=== PATIENT | female | born 1975 | race Caucasian/White ===

== ENCOUNTER 2024-01-21 11:52 | Observation (INO) | payer BC, OTHER ==
[~2024-01-21] VITALS: Ht 160 cm; Wt 81.6 kg
[2024-01-21] MEDS ORDERED: SODIUM CHLORIDE FLUSH 10 ML SYR IV PRN (12:30)
[2024-01-21 12:34] LABS: BASOPHILS # (AUTO) 0.1 (0.0-0.1); BASOPHILS % 0.6 % (0.0-1.0); EOSINOPHILS # (AUTO) 0.1 (0.0-0.4); HEMATOCRIT 36.5 % (34.2-44.1); HEMOGLOBIN 12.8 g/dL (12.0-16.0); LYMPHOCYTES # (AUTO) 3.2 (1.0-3.2); LYMPHOCYTES % 36.6 % (18.0-39.1); MEAN CORPUSCULAR HEMOGLOBIN 33.2 pg (28-32); MEAN CORPUSCULAR HGB CONC 35.1 g/dL (31-35); MEAN CORPUSCULAR VOLUME 94.8 fL (81-99); MONOCYTES # (AUTO) 0.5 (0.2-0.8); NEUTROPHILS # (AUTO) 4.8 (2.1-6.9); NEUTROPHILS % 55.5 % (38.7-80.0); PLATELET COUNT 278 x10e3/uL (140-360); RED BLOOD COUNT 3.85 x10e6/uL (3.6-5.1); RED CELL DISTRIBUTION WIDTH 12.3 % (11.7-14.4); WHITE BLOOD COUNT 8.66 x10e3/uL (4.8-10.8)
[2024-01-21 12:54] LABS: ALANINE AMINOTRANSFERASE 45 IU/L (0-55); ALBUMIN 4.5 g/dL (3.5-5.0); ALBUMIN/GLOBULIN RATIO 1.4 (0.8-2.0); ALKALINE PHOSPHATASE 68 IU/L (40-150); ANION GAP 17.1 mmol/L (8-16); BILIRUBIN,TOTAL 0.4 mg/dL (0.2-1.2); BLOOD UREA NITROGEN 8 mg/dL (7-26); BUN/CREATININE RATIO 9 (6-25); CALCIUM 10.2 mg/dL (8.4-10.2); CARBON DIOXIDE 21 mmol/L (22-29); CHLORIDE 103 mmol/L (98-107); EST GLOMERULAR FILTRATION RATE 78 ML/MIN (>=60); GLUCOSE 95 mg/dL (74-118); POTASSIUM 4.1 mmol/L (3.5-5.1); SODIUM 137 mmol/L (136-145); TOTAL PROTEIN 7.8 g/dL (6.5-8.1)
[2024-01-21] MEDS: ASPIRIN 81 MG CHEW TAB PO ONE ×2 (13:03→14:36)
[2024-01-21 13:04] LABS: TROPONIN I < 0.001 ng/mL (0-0.300)
[2024-01-21] MEDS ORDERED: ONDANSETRON HCL INJ 2MG/ML 2ML 2 MG/ML VIAL IV PRN (14:15)
[2024-01-21] MEDS ORDERED: SODIUM CHLORIDE FLUSH 10 ML SYR INJ PRN (14:15)
[2024-01-21 17:03] VITALS: BP 147/96; PULSE 82; RESP 19; TEMP 98.3; O2SAT 100
[2024-01-21] MEDS ORDERED: METFORMIN HCL500 MG PO (17:32)
[2024-01-21] MEDS ORDERED: OMEGA 3 1,0001 EACH PO (17:32)
[2024-01-21] MEDS ORDERED: SYNTHROID75 MCG PO (17:32)
[2024-01-21] MEDS ORDERED: FAMOTIDINE20 MG PO (17:32)
[2024-01-21] MEDS ORDERED: ATORVASTATIN CA20 MG PO (17:32)
[2024-01-21 17:37] VITALS: BP 147/96; PULSE 82; RESP 19; TEMP 98.3; O2SAT 100
[2024-01-21] MEDS ORDERED: METOPROLOL TARTRATE INJ 1 MG/ML VIAL IV PRN (18:30)
[2024-01-21] MEDS ORDERED: DOCUSATE SODIUM 100 MG CAP PO PRN (18:30)
[2024-01-21] MEDS ORDERED: DEXTROSE 50% SYRINGE 50 ML IV PRN (18:30)
[2024-01-21] MEDS ORDERED: ALBUTEROL/IPRATROPIUM 3 ML NEB NEB PRN (18:30)
[2024-01-21] MEDS ORDERED: MELATONIN 3 MG TAB PO PRN (18:30)
[2024-01-21] MEDS ORDERED: SIMETHICONE 80 MG CHEW PO PRN (18:30)
[2024-01-21 20:00] VITALS: BP 141/90; PULSE 80; RESP 18; TEMP 97.4; O2SAT 100
[2024-01-21 20:54] VITALS: BP 141/90; PULSE 80; RESP 18; TEMP 97.4; O2SAT 100
[2024-01-21 21:00] VITALS: BP 141/90; PULSE 80; RESP 18; TEMP 97.4; O2SAT 100
[2024-01-21] MEDS ORDERED: INSULIN REGULAR, HUMAN 100 UNIT/1 ML SQ SCH (21:00)
[2024-01-21] MEDS: ACETAMINOPHEN 325 MG TAB PO PRN (21:47)
[2024-01-21] MEDS: ATORVASTATIN 10 MG TAB PO SCH (21:47)
[2024-01-21] MEDS: FAMOTIDINE 20 MG TAB PO SCH (21:51)
[2024-01-21 23:17] LABS: CREATINE KINASE 76 IU/L (29-168)
[2024-01-21 23:24] LABS: TROPONIN I < 0.001 ng/mL (0-0.300)
[2024-01-22] VITALS: BP 141/92; PULSE 74; RESP 18; TEMP 98.1; O2SAT 95
[2024-01-22 04:49] VITALS: BP 133/82; PULSE 83; RESP 19; TEMP 98; O2SAT 98
[2024-01-22 04:51] VITALS: BP 133/82; PULSE 80; RESP 19; TEMP 98; O2SAT 98
[2024-01-22] MEDS: LEVOTHYROXINE SODIUM 75 MCG TAB PO SCH (05:41)
[2024-01-22 07:29] LABS: BASOPHILS % 0.6 % (0.0-1.0); EOSINOPHILS # (AUTO) 0.1 (0.0-0.4); EOSINOPHILS % 1.8 % (0.0-6.0); HEMOGLOBIN 12.3 g/dL (12.0-16.0); LYMPHOCYTES # (AUTO) 2.3 (1.0-3.2); LYMPHOCYTES % 35.1 % (18.0-39.1); MEAN CORPUSCULAR HEMOGLOBIN 33.2 pg (28-32); MEAN CORPUSCULAR HGB CONC 35.1 g/dL (31-35); MEAN CORPUSCULAR VOLUME 94.6 fL (81-99); MONOCYTES # (AUTO) 0.4 (0.2-0.8); MONOCYTES % 5.4 % (4.4-11.3); NEUTROPHILS # (AUTO) 3.8 (2.1-6.9); NEUTROPHILS % 56.8 % (38.7-80.0); PLATELET COUNT 250 x10e3/uL (140-360); RED CELL DISTRIBUTION WIDTH 12.1 % (11.7-14.4); WHITE BLOOD COUNT 6.61 x10e3/uL (4.8-10.8)
[2024-01-22 07:48] LABS: ALBUMIN 3.9 g/dL (3.5-5.0); ALBUMIN/GLOBULIN RATIO 1.3 (0.8-2.0); BILIRUBIN,TOTAL 0.6 mg/dL (0.2-1.2); CALCIUM 9.3 mg/dL (8.4-10.2); CREATININE, SERUM 0.84 mg/dL (0.57-1.11)
[2024-01-22 08:06] LABS: CHOL/HDL RATIO 2.6 (3.0-3.6)
[2024-01-22 08:18] LABS: CREATINE KINASE 57 IU/L (29-168)
[2024-01-22 08:22] VITALS: BP 135/87; PULSE 82; RESP 19; TEMP 98.4; O2SAT 98
[2024-01-22 08:27] LABS: THYROID STIMULATING HORMONE 1.947 uIU/mL (0.350-4.940)
[2024-01-22 08:28] LABS: TROPONIN I < 0.001 ng/mL (0-0.300)
[2024-01-22 08:44] VITALS: BP 135/87; PULSE 82; RESP 19; TEMP 98.4; O2SAT 98
[2024-01-22] MEDS ORDERED: FAMOTIDINE 20 MG TAB PO SCH (09:00)
[2024-01-22] MEDS: ASPIRIN 81 MG ENTERIC COATED PO SCH (09:00)
[2024-01-22] MEDS ORDERED: ASPIRIN EC81 MG PO (11:14)
[2024-01-22] MEDS ORDERED: LOPRESSOR25 MG PO (11:14)
[2024-01-22 12:12] VITALS: BP 134/88; PULSE 89; RESP 19; TEMP 98.2; O2SAT 97
== END 2024-01-22 13:35 | disposition home or self-care (01) ==
LOC: ER 12:04 → ERHOLD 14:05 → MED/SURG3 15:26
PROVIDERS: ADMIT Internal Medicine; ATTEND Internal Medicine
DX: R07.89 Other chest pain (principal); R00.0 Tachycardia, unspecified; R20.0 Anesthesia of skin; E03.9 Hypothyroidism, unspecified; K21.9 Gastro-esophageal reflux disease without esophagitis; E78.5 Hyperlipidemia, unspecified; F41.9 Anxiety disorder, unspecified; E66.9 Obesity, unspecified; Z68.31 Body mass index [BMI] 31.0-31.9, adult; Z82.49 Family history of ischemic heart disease and other diseases of the circulatory system; E28.2 Polycystic ovarian syndrome; M06.9 Rheumatoid arthritis, unspecified; Z11.52 Encounter for screening for COVID-19; Z79.899 Other long term (current) drug therapy; Z79.82 Long term (current) use of aspirin
CPT/HCPCS: 36415 ×2; 71046; 80053 ×2; 80061; 82550 ×2; 83036; 83690; 83880; 84443; 84484 ×2; 84702; 85025 ×2; 93005 ×2; 93017; 93306; 99284; G0378 ×2; U0002